=== PATIENT | female | born 1975 | race Caucasian/White ===

== ENCOUNTER 2016-07-21 07:30 | Outpatient (RCR) | payer OTHER ==
[~2016-07-21 07:30] MED LIST: ANTIVERT 25MG25 MG PO; NEXIUM 20MG20 MG PO; NORCO 325 MG-7.1 TAB PO; VIT D
== END 2016-08-06 10:56 | disposition home or self-care (01) ==
LOC: WSPT 07:30
DX: M25.552 Pain in left hip (principal)
CPT/HCPCS: G0283-GP; G8978-GP; G8979-GP; G8980-GP